=== PATIENT | male | born 1990 | race Two or more races ===

== ENCOUNTER 2024-04-22 07:45 | Day surgery (SDC) | payer MEDICAID, SELFPAY ==
[2024-04-21 07:38] VITALS: BMI 28.8
--- NOTE | 2024-04-21 09:44 | ESHP_ITS ---
RE: CLAIRSSA SUH : 1990 DATE OF ADMISSION: 04/22/2024 HISTORY OF PRESENT ILLNESS: The patient is a 33-year-old gentleman desiring bilateral vasectomy. The patient has three children. PAST SURGICAL HISTORY: None. PAST MEDICAL HISTORY: No history of diabetes mellitus or hypertension. ALLERGIES: NONE KNOWN. MEDICATIONS: None. PHYSICAL EXAMINATION: HEENT: Normal. NECK: Supple. LUNGS: Clear. CARDIOVASCULAR: Heart sounds are normal. ABDOMEN: Soft without any organomegaly. No guarding. No rigidity. EXTREMITIES: Normal. IMPRESSION: The patient is desiring bilateral vasectomy for family planning. PLAN: Bilateral vasectomy. Planned procedure, risks, and complications have been discussed with the patient. The patient has understood them and agreed to proceed. DT: 09:11:35 TT: 09:43:00 Ref: [id number] - TID: [id number]
[2024-04-21 09:47] LABS: Basophils # (Auto) 0.1 Thou/mm3 (0.0-0.2); Basophils % (Auto) 1 % (0-2.5); Eosinophils # (Auto) 0.4 Thou/mm3 (0.0-0.5); Eosinophils % (Auto) 4 % (0-10); Hematocrit 46.9 % (41.0-53.0); Hemoglobin 15.9 g/dL (13.5-16.0); Immature Granulocytes % (Auto) 0 % (0-0); Immature Granulocytes Auto 0.02 Thou/mm3 (0.00-0.00); Lymphocytes # (Auto) 3.5 Thou/mm3 (1.0-4.8); Lymphocytes % (Auto) 41 % (10-50); Mean Corpuscular HGB Conc 33.9 g/dl (31.0-37.0); Mean Corpuscular Hemoglobin 30.8 pg (25.0-35.0); Mean Corpuscular Volume 91 fL (80-100); Monocytes # (Auto) 0.7 Thou/mm3 (0.0-0.8); Monocytes % (Auto) 8 % (0-12); Neutrophils # (Auto) 3.8 Thou/mm3 (1.8-7.7); Neutrophils % (Auto) 45 % (37-80); Nucleated Red Blood Cell % 0 /100 WBC (0); Platelet Count 244 Thou/mm3 (140-440); RDW Standard Deviation 41.6 fL (35.1-43.9); Red Blood Count 5.16 Miln/mm3 (4.50-5.90); White Blood Count 8.5 Thou/mm3 (3.8-10.6)
[2024-04-21 09:59] LABS: Anion Gap 6 (7-16); BUN/Creatinine Ratio 16 Ratio (12-20); Blood Urea Nitrogen 13 mg/dL (9-23); Carbon Dioxide 29.6 mMol/L (20.0-31.0); Chloride 104 mMol/L (98-107); Creatinine (Component) 0.8 mg/dL (0.6-1.3); Glucose 98 mg/dL (74-106); Osmolality,Calculated 279 (275-295); Sodium 140 mMol/L (136-145); eGFR > 60 See Note
[2024-04-22] VITALS (9 sets, daily range): BP systolic 95–129; BP diastolic 64–95; PULSE 60–70; RESP 13–18; TEMP 36.2–36.7; O2SAT 97–100; BMI 28.8
[2024-04-22] MEDS: RINGERS LACTATED 1000 ML 1,000 ML 20 ML IV (08:17)
--- NOTE | 2024-04-22 10:45 | SUR.PHASEI ---
1045 Patient arrived to recovery resting comfortably in [facility], on oxygen 8L via oxy mask with an oral airway in place, breathing unlabored, vital signs stable, dressing intact to groin area; sutures, telfa, fluffs, scrotal support, no bleeding noted, ice pack applied per MD order, lung sounds clear upon auscultation, bilateral radial pulses present when palpated, report received from Kari HAWTHORNE/Dr. Bustillo and Jcarlos LARIOS
--- NOTE | 2024-04-22 11:58 | SUR.PHASEII ---
1158 Patient meets discharge criteria from recovery, awake and alert, breathing unlabored, vital signs stable, denies pain, dressing intact; no bleeding noted, patient ate a jello and drinking juice; tolerating well, denies nausea, patient assisted with dressing into his clothing by his , patient signed limited proficiency statement for his to medical interpreter [place] to him, discharge instructions given to patient and patients with his medical interpreter [place] to him, signed discharge instructions. Patient given all his belongings prior to discharge, transported via wheelchair and left in a private vehicle.
--- NOTE | 2024-04-22 20:02 | ESOP_ITS ---
RE: CLARISSA SUH : 1990 DATE OF OPERATION: 04/22/2024 PREOPERATIVE DIAGNOSIS: The patient desiring bilateral vasectomy. POSTOPERATIVE DIAGNOSIS: The patient desiring bilateral vasectomy. PROCEDURE PERFORMED: Bilateral vasectomy. ANESTHESIA: General. INDICATION: The patient is a 33-year-old gentleman desiring bilateral vasectomy for family planning. Planned procedure, risks and complications have been discussed with the patient. The patient has understood them and agreed to proceed. DESCRIPTION OF PROCEDURE: After the patient was brought to the operating table under adequate general anesthesia and supine position, parts were prepped and draped in the usual fashion. The right vas deferens was made subcutaneous. A small skin incision was then made. The vas deferens was isolated from surrounding structures. A small segment of the vas deferens was selected and 2 clamps were placed on the vas deferens. The segment between the clamps was excised. The ends of the vas deferens were fulgurated and ligated using 3-0 chromic catgut suture. Complete hemostasis was obtained. Skin wound was closed with interrupted sutures of 3-0 chromic catgut. In a similar fashion, the left-sided vasectomy was also done. Local anesthetic was injected at the site of the skin. Sterile dressing was then applied. The patient was then transferred to the recovery room in a satisfactory condition having tolerated the entire procedure well. Sponge count and needle count at the end of the procedure was found to be correct. Estimated blood loss was approximately 2 mL. DT: 10:53:14 TT: 20:00:00 Ref: [id number] - TID: [id number]
== END 2024-04-22 11:58 | disposition home or self-care (01) ==
PROVIDERS: PCP Family Medicine; Referring Provider Surgery; Visit Provider Surgery
PROC: (CPT 55250; principal; 2024-04-22 09:30)
DX: Z30.2 Encounter for sterilization (principal)
CPT/HCPCS: 55250; 36415; 80048; 85025; A4649; J0690; J1885; J2250; J2704; J3010; J7120; L8330; A9270